=== PATIENT | female | born 1950 | race Caucasian/White ===

== ENCOUNTER 2017-05-26 13:51 | Emergency (ER) | payer MEDICARE ==
[~2017-05-26] VITALS: Ht 160 cm; Wt 47.2 kg
[~2017-05-26 13:51] MED LIST: CHOLESTYRAMINE P4 GM PO; CLONAZEPAM0.5 MG PO; IPRAT-ALBUT 0.5-3 ML INH; MULTIVITAMINS1 EAC7 PO; NEURONTIN300 MG PO; NORCO 5-325 TA1 EACH PO; OMEPRAZOLE20 MG PO; PROAIR HFA8.5 GM IH; SERTRALINE HCL50 MG PO
[2017-05-26] MEDS ORDERED: PRISTIQ ER50 MG PO (14:09)
[2017-05-26] MEDS ORDERED: PERCOCET 7.5-31 EACH PO (14:18)
[2017-05-26] MEDS ORDERED: BACLOFEN10 MG PO (14:18)
[2017-05-26] MEDS ORDERED: METHYLPREDNISOLO4 M1 PO (14:18)
== END 2017-05-26 14:26 | disposition home or self-care (01) ==
LOC: ED 13:51
DX: M54.2 Cervicalgia (principal); G89.29 Other chronic pain; M62.838 Other muscle spasm; F41.9 Anxiety disorder, unspecified; K21.9 Gastro-esophageal reflux disease without esophagitis; F32.9 Major depressive disorder, single episode, unspecified; F17.200 Nicotine dependence, unspecified, uncomplicated; Z88.0 Allergy status to penicillin; Z88.2 Allergy status to sulfonamides; Z88.5 Allergy status to narcotic agent; Z79.899 Other long term (current) drug therapy
CPT/HCPCS: 99283

== ENCOUNTER 2017-09-12 14:57 | Emergency (ER) | payer MEDICARE ==
[~2017-09-12] VITALS: Ht 160 cm; Wt 51.7 kg
[~2017-09-12 14:57] MED LIST changes: +BACLOFEN10 MG PO; +METHYLPREDNISOLO4 M1 PO; +PERCOCET 7.5-31 EACH PO; +PRISTIQ ER50 MG PO
[2017-09-12] MEDS ORDERED: CYMBALTA30 MG PO (15:22)
[2017-09-12] MEDS ORDERED: SPIRIVA18 MCG INH (15:23)
[2017-09-12] MEDS ORDERED: ZOFRAN4 MG PO (18:26)
== END 2017-09-12 18:45 | disposition home or self-care (01) ==
LOC: ED 14:57
DX: K29.70 Gastritis, unspecified, without bleeding (principal); F41.9 Anxiety disorder, unspecified; K21.9 Gastro-esophageal reflux disease without esophagitis; F32.9 Major depressive disorder, single episode, unspecified; F17.200 Nicotine dependence, unspecified, uncomplicated; Z88.0 Allergy status to penicillin; Z88.2 Allergy status to sulfonamides; Z88.5 Allergy status to narcotic agent; Z79.899 Other long term (current) drug therapy
CPT/HCPCS: 80053; 81001; 83690; 85025; 96374; 96375; 99283; J2405

== ENCOUNTER 2018-05-25 00:12 | Observation (INO) | payer MEDICARE ==
[~2018-05-25] VITALS: Ht 160 cm; Wt 49.9 kg
[~2018-05-25 00:12] MED LIST changes: +ALBUTEROL2.5 MG/3 M INH; +CYMBALTA30 MG PO; -IPRAT-ALBUT 0.5-3 ML INH; +SPIRIVA18 MCG INH; +ULTRAM50 MG PO; +ZANTAC150 MG PO; +ZOFRAN4 MG PO
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
--- NOTE | 2018-05-25 03:43 | NUR ---
PT ARRIVED TO ROOM 126 VIA STRETCHER, WAS ABLE TO STAND AND TRANSFER HERSELF INTO BED. SHE IS ALERT/ORIENTED, DENIES PAIN AT THIS TIME. BREATHING APPEARS LABORED, TACHYPNIC RATE 20-25, 2L O2 VIA NC IN PLACE, ACCESSORY MUSCLE USE OBSERVED. LUNGS SOUND TIGHT WITH EXPIRATORY WHEEZES PRESENT. HR TACHY 120'S. BOWEL TONES ACTIVE, DENIES NAUSEA. SKIN APPEARS GROSSLY INTACT. PT UP TO [facility] WITH SBA TO VOID AND THEN RETURNED TO BED. IV PATENT, INFUSING WNL, DRESSING INTACT. R.T. IN TO ROOM AT THIS TIME FOR BREATHING TREATMENT. CALL LIGHT WITHIN REACH, NO FURTHER REQUESTS AT THIS TIME.
--- NOTE | 2018-05-25 04:56 | NUR ---
PT CALLED TO USE BATHROOM, UP WITH SBA TO BSC, VOIDED 500ML AND RETURNED TO BED. PT TOLERATED WELL. PROVIDED WITH JELLO PER REQUEST. PT REPORTS A SORE THROAT THAT SHE RATES 4/10, PRN TYLENOL ADMINISTERED. PT DENIES FURTHER REQUETS AT THIS TIME, CALL LIGHT WITHIN REACH.
--- NOTE | 2018-05-25 06:38 | EKG ---
[facility] [place] [facility] [address] [facility] [place], [place] [address] Signed Sinus tachycardia with premature atrial complexes Septal infarct , age undetermined ST \T\ T wave abnormality, consider inferior ischemia ST \T\ T wave abnormality, consider anterolateral ischemia Abnormal ECG No previous ECGs available Confirmed by CHARLY MCDOWELL MD ([id number]) on 05/25/2018 6:37:55 AM Electronically Signed By: CHARLY MCDOWELL MD 05/25/18 0638 PATIENT NAME: DAMARIS GALICIA Electrocardiogram DATE OF : 54 PHYSICIAN: CHARLY MCDOWELL MD REPORT #: [id number] REPORT IS CONFIDENTIAL AND NOT TO BE RELEASED WITHOUT AUTHORIZATION
--- NOTE | 2018-05-25 06:47 | NUR ---
PT APPEARS TO BE SLEEPING AT THIS TIME, NO APPARENT DISTRESS. RESPIRAIONS APPEAR EVEN AND UNLABORED, RR:20, SPO2:91% ON 2L. HR:100. WILL ALLOW FOR REST AND CONTINUE TO MONITOR.
--- NOTE | 2018-05-25 07:30 | NUR ---
REPORT RECIEVED, PATIENT IS SLEEPING IN BED. NO DISTRESS NOTED.
--- NOTE | 2018-05-25 08:00 | NUR ---
ASSESSMENT DONE. HAS HARSH COUGH. LUNGS ARE DIM AND TIGHT. DENIES PAIN IN CHEST WITH DEEP BREATH. TALKED WITH PATIENT ABOUT PLAN OF CARE FOR DAY, IS UNDERSTANDING. UP TO COMMODE TO VOID, BACK TO BED W/O INCIDENT.
--- NOTE | 2018-05-25 09:00 | NUR ---
SITTING UP IN BED TO TAKE CLEAR LIQUIDS.
--- NOTE | 2018-05-25 09:55 | NUR ---
ROUTINE PO MEDICATIONS GIVEN. PATIENT DENIES FUTHER NEEDS AT THIS TIME.
[2018-05-25] MEDS ORDERED: OSELTAMIVIR PHO75 MG PO (12:00)
[2018-05-25] MEDS ORDERED: VITAMIN D1000 UNI1 PO (12:59)
[2018-05-25] MEDS ORDERED: PROBIOTIC1 EAC1 PO (13:00)
--- NOTE | 2018-05-25 13:00 | NUR ---
MED REC COMPLETE
--- NOTE | 2018-05-25 13:20 | NUR ---
TYLENOL GIVEN FOR GENERALIZED DISCOMFORT. TOOK LUNCH WELL.
--- NOTE | 2018-05-25 14:48 | NUR ---
RESTFUL AT THIS TIME.
--- NOTE | 2018-05-25 16:00 | NUR ---
ASSESSMENT DONE. DENIES PAIN. STATES SHE DOES HAVE PERIODS OF FEELING ANXIOUS. PATIENT STATES THIS IS NORMAL FOR HER.
--- NOTE | 2018-05-25 16:30 | NUR ---
IVF INFUSING W/O PROBLEMS.
--- NOTE | 2018-05-25 18:10 | NUR ---
SITTING UP IN BED TO EAT DINNER. IS WITH INCREASED SHORTNESS OF BREATH WITH ACTIVITY. CONTINUE WITH OCC COUGH.
--- NOTE | 2018-05-25 18:48 | NUR ---
IS W/O C/O. TOOK DINNER WELL.
--- NOTE | 2018-05-25 18:57 | NUR ---
REPORT TO NEXT SHIFT. IS SITTING UP IN BED WATCHING TV.
--- NOTE | 2018-05-25 19:30 | NUR ---
RECEIVED REPORT AT 1900, FOUND PT IN BED WATCHING TV. PT HAD SOME QUESTIONS ABOUT THE DOSING OF HER CLONAZEPAM AT BEDTIME. OTHERWISE PT HAD NO NEEDS OR COCNERNS AT THAT TIME.
--- NOTE | 2018-05-25 20:00 | NUR ---
MD MCDOWELL WAS CALLED FOR CLONAZEPAM ORDER AND A NEW PRN HS ORDER WAS RECEIVED. PT HAS EXPIRATORY WHEEZING IN ALL LOBES . RIGHT LOBES ARE VERY DIMINISHED OVERALL. TEMPORAL TEMP WAS 99.7. ABD SOUNDS ARE PRESENT AND NO PERIPHERAL EDEMA NOTED. RR IS WDL AND SO ARE O2 SATS ON 2L O2 NC. NO NEW CONCERNS NOTED AT THIS TIME.
--- NOTE | 2018-05-25 22:00 | NUR ---
PT AT THIS TIME IS STILL AWAKE BUT HAS NO NEEDS. ASSISTED PT TO BSC. URINE OUTPUT IS ADEQUATE.
--- NOTE | 2018-05-26 00:05 | NUR ---
PT REFUSED NEB FOR RT. PT IN BED RESTING. NO NEW CONCERNS AT THIS TIME.
--- NOTE | 2018-05-26 01:30 | NUR ---
PT IS RESTING IN BED BUT NOT SLEEPING. NO NEW CONCERNS NOTED AT THIS TIME.
--- NOTE | 2018-05-26 02:34 | NUR ---
PT AT THIS TIME IS ON 1L O2 NC AND O2 SATS ARE >90%.
--- NOTE | 2018-05-26 04:00 | NUR ---
PT AT THIS TIME IS ON ROOM AIR AND MAINTAINING O2 SATS >90%. ALL LOBES HAVE INSPIRATORY WHEEZING PRESENT AT THIS TIME. PT WAS FINALLY ABLE TO SLEEP SOME. NO NEW CONCERNS NOTED AT THIS TIME.
--- NOTE | 2018-05-26 05:13 | NUR ---
PT AT THIS TIME WAS PUT ON 2L O2 NC AGAIN. WHILE SLEEPING HER O2 SATS WERE AT 88%. WILL WEAN HER OFF O2 AGAIN WHILE AWAKE.
--- NOTE | 2018-05-26 05:33 | NUR ---
PT OVERALL HAD A GOOD NIGHT. V/S OVERALL WERE WDL, LOBES DURING FIRST ASSESSMENT HAD EXPIRATORY WHEEZING PRESENT, DURING SECOND ASSESSMENT LOBES ONLY HAD SOME SLIGHT COARSNESS PRESENT. WITH THE 0400 ASSESSMENT PT HAD INSPRIRATORY WHEEZING PRESENT IN ALL LOBES. PT HAS WEANED OFF O2 AT 0400 AND WAS ABLE TO MAINTAIN HER O2 SATS> 90% WHILE AWAKE. ONCE PT FELL ASLEEP HOWEVER HER O2 SATS DROPPED INTO THE MID 80'S. THEREFORE AT THIS TIME PT IS BACK ON 2L O2 NC WHILE SLEEPING. PT STATED THAT SHE FEELS STRONGER NOW. HER ANXIETY LEVEL HAS DIMINISHED A LOT SINCE KLONOPIN WAS GIVEN LAST NIGHT. URINE OUTPUT IS ADEQUATE. WILL CONTINUE TO MONITOR. NO NEW CONCNERNS NOTED AT THIS TIME.
--- NOTE | 2018-05-26 08:15 | NUR ---
pt sleeping soundly at this time. vitals wnl, pt is in no visable distress, will defer assessment until 0900 when morning meds are due to allow for pt rest.
--- NOTE | 2018-05-26 09:43 | NUR ---
PT SITTING UP IN BED TALKING ON CELL PHONE. PT DENIES PAIN, NAUSEA, AND SOB AT THIS TIME. PT ALERT AND ORIENTED X4, COOPERATIVE AND ALERT. PT REPORTS FEELING FATIGUED.
--- NOTE | 2018-05-26 11:50 | NUR ---
PT GIVEN LUNCH TRAY. PT SITTING UP IN BED TALKING ON THE PHONE. O2 SAT IS 91-97% ON ROOM AIR.
--- NOTE | 2018-05-26 13:45 | NUR ---
PT TRANSFERED TO ROOM 113. PT ABLE TO AMBULATE TO HER NEW ROOM. ALL PERSONAL BELONGINGS TRANSFERED WITH PT. LITZY ACTIVITY WELL.
--- NOTE | 2018-05-26 13:46 | NUR ---
PT TRANSFERED FROM ICU TO ROOM 113, PT WALKED WITH MASK ACCOMPANIED BY NURSE TO ROOM. SCRAP YARD WORKER WILL ASSIST PT INTO SHOWER AT THIS TIME. DROPLET PRECATIONS ARE IN PLACE. PT IS ALERT, ORIENTED, DENIES ANY DISCOMFORT OR CONCERNS, ANXIOUS TO TAKE SHOWER. ORDERS NOTED.
--- NOTE | 2018-05-26 16:11 | NUR ---
PATIENT RESTING IN BED. IV COVERED. PATIENT GOES TO BATHROOM TO TAKE A SHOWER. PATIENT BACKS TO BED. CALL LIGHT WITHIN REACH. NO OTHER NEEDS AT THIS TIME
--- NOTE | 2018-05-26 17:55 | NUR ---
BROUGHT PATIENT A ICE PACK AND A HOT PACK.
--- NOTE | 2018-05-26 18:00 | NUR ---
PT DENIES ANY NEEDS, STATES SHE IS COMFORTABLE, REMAINS ON RA, LOOSE PROD COUGH. IN ROOM VISITING. CALL LIGHT IN EASY REACH.
--- NOTE | 2018-05-26 19:10 | NUR ---
IN ROOM FOR REPORT, PT IS RESTING WITH EYES CLOSED. RESPIRATIONS ARE EVEN AND NONLABORED. CALL LIGHT IS WITHIN REACH.
--- NOTE | 2018-05-26 20:06 | NUR ---
GETTING NEBS TX. cONTINUES ON DROPLET PRECAUTIONS. NO REQUESTS, MOIST PRODUCTIVE COUGH PRESENT. ON ROOM AIR. NO RESP DISTRESS. CALL LIGHT AT BEDSIDE CALL LIGHT AT BEDSIDE, FRESH WATER GIVEN. PT IN BED
--- NOTE | 2018-05-26 21:40 | NUR ---
IN ROOM TO ASSESS PT AND ADMINISTER MEDICATIONS. ASSISTED PT TO THE RESTROOM AND BACK TO BED. SHE WAS VERY SOB AND O2 SAT WAS 77% ON RA. PLACED HER ON 2 LNC WHILE SHE RECOVERED. THEN TURNED PT DOWN TO 1LNC BECAUSE SHE WAS GOING TO TRY TO GO TO SLEEP AND WOULD DIP TO 89% OFF AND ON, ON RA. SHE DENIES FURTHER NEEDS AT THIS TIME. CALL LIGHT IS CLOSE.
--- NOTE | 2018-05-26 23:19 | NUR ---
PT IS AWAKE IN BED, FRESH WATER AT BEDSIDE AND PT DENIES FURTHER NEEDS. CALL LIGHT IS WITHIN REACH.
--- NOTE | 2018-05-27 00:05 | NUR ---
PT IS AWAKE AT THIS TIME AND RECEIVING A NEB TRT. CALL LIGHT IS CLOSE.
--- NOTE | 2018-05-27 00:55 | NUR ---
PT IS RESTING WITH EYES CLOSED, REPIRATIONS ARE EVEN AND NONLABORED. CALL LIGHT IS WITHIN REACH.
--- NOTE | 2018-05-27 02:55 | NUR ---
PT IS RESTING WITH EYES CLOSED, RESPIRATIONS ARE EVEN AND NONLABORED. CALL LIGHT IS CLOSE.
--- NOTE | 2018-05-27 04:59 | NUR ---
PT IS RESTING WITH EYES CLOSED, RESPIRATIONS ARE EVEN AND NONLABORED. CALL LIGHT IS WITHIN REACH.
--- NOTE | 2018-05-27 06:10 | NUR ---
PT DENIES NEEDS AT THIS TIME CALL LIGHT IS WITHIN REACH.
--- NOTE | 2018-05-27 07:39 | NUR ---
RECIEVED BEDSIDE REPORT FROM NAOMI MUÑIZ. PT SLEEPING, BREATHING EVEN AND UNLABORED. O2 REPLACED AT 1L DUE TO DESATS AFTER AMBULATION FROM THE BATHROOM. WILL TITRATE ONCE SHE WAKES UP.
--- NOTE | 2018-05-27 08:00 | NUR ---
PATIENT RESTING IN BED. PATIENT REFUSED TO TAKE A SHOWER TODAY BECAUSE SHE TOOK A SHOWER YESTERDAY.
--- NOTE | 2018-05-27 08:49 | NUR ---
PT AWAKE AND ALERT IN BED, VERY CHATTY. PT VERY COOPERATIVE WITH CARES. PT WANTS TO QUIT SMOKING, RT ASSITING WITH THAT. STILL ON 1L O2, WILL TRY TO TIRTRATE DOWN.
--- NOTE | 2018-05-27 09:31 | NUR ---
PATIENT RESTING IN BED. VITAL SIGNS AND I&O DONE. ICE WATER GIVEN. CALL LIGHT WITHIN REACH. NO OTHER NEEDS AT THIS TIME
--- NOTE | 2018-05-27 09:40 | NUR ---
PATIENT RESTING IN BED. PATIENT COMPLAINS ABOUT SHE FEELS THAT THE IV ITCHES AND THE SKIN IS RED. RN NOTIFIED
--- NOTE | 2018-05-27 11:00 | NUR ---
SPOKE WITH PATIENT IN ROOM. PATIENT IS UP AMBULATING WITH OXYGEN ON INDEPENDENTLY. PATIENT IS ORIENTED, IS VERY ENGAGED IN HER HEALTH AND DISCHARGE PLAN. PATIENT LIVES WITH AND HAS ADULT CHILDREN. 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 SHE STATES "I LET MY HEALTH SLIP BECAUSE I DON'T TAKE TIME TO HELP MYSELF". PATIENT HAS NO STAIRS AT HOME, SHE HAS NO AMBULATION ISSUES. SHE STILL DRIVES. SHE IS RETIRED. DISCUSSED HER PREFERENCE FOR DISCHARGE PLAN, SHE WANTS TO RETURN HOME BUT STATES "I DON'T THINK TODAY THOUGH, I'M STILL SO SOB". DISCUSSED HER DIAGNOSIS, SHE STATES SHE HAS A NEBULIZER AT HOME, SHE DOES NOT HAVE OXYGEN AND IS HOPING NOT TO NEED IT. DISCUSSED POSSIBLE DME IN CASE SHE DOES, SHE THINKS TO GO THROUGH IN-HOME MEDICAL IF SHE NEEDS IT. DISCUSSED SMOKING CESSATION. PATIENT VERY INTERESTED IN THIS. STATES SHE HAS QUIT IN THE PAST, AND STARTED SMOKING AT AGE 32. SHE STATES UNDERSTANDING OF COPD, HAD TWO SISTER WHO OF COMPLICATIONS RELATED TO THIS. SHE IS VERY INTERESTED IN F/U WITH CHW AND WITH POSSIBLE PULMONARY REHAB AT SOME POINT. DISCUSSED FOR HER TO UNDERSTAND ALL MEDICATIONS AND SIDE EFFECTS AT DISCHARGE. QUESTIONS ANSWERED. NO FURTHER CONCERNS AT THIS TIME. UNDERSTANDS IT WILL BE AFTER THE WEEKEND BEFORE SHE GETS F/U CALL.
--- NOTE | 2018-05-27 12:40 | NUR ---
PATIENT WALKING IN THE HALLWAY WITH THE CHANNEL REBUILDERAlis MINER. THIS CHANNEL REBUILDER CHAGED LINENS. PATIENT BACKS TO BED. CALL LIGHT WITHIN REACH. NO OTHER NEEDS AT THIS TIME
--- NOTE | 2018-05-27 13:13 | NUR ---
PATIENT RESTING IN BED. IN ROOM. VITAL SIGNS AND I&O DONE. CALL LIGHT WITHIN REACH. NO OTHER NEEDS AT THIS TIME
--- NOTE | 2018-05-27 15:11 | NUR ---
PATIENT CALLS AND ASKS FOR A CUP OF COFFEE. A CUP OF COFFEE GIVEN. CALL LIGHT WITHIN REACH. NO OTHER NEEDS AT THIS TIME
--- NOTE | 2018-05-27 17:00 | NUR ---
PATIENT RESTING IN BED. VITAL SIGNS AND I&O DONE. ICE WATER GIVEN. CALL LIGHT WITHIN REACH. NO OTHER NEEDS AT THIS TIME
--- NOTE | 2018-05-27 18:39 | NUR ---
PT REPORTS FEELING MUCH BETTER. IV INFILTRATED, RESTARTED BY Juan Ramon HALL RN. PT S/L EXCEPT FOR IV ABX. PT REPORTS "JUNK" COMING UP IS LESS. PT REPORTS NO BM SINCE WEDNESDAY, SENNA NOT EFFECTIVE. PER PT REQUEST, SUPOSTITORY GIVEN. WAITING FOR RESULTS. PLAN FOR DISCHARGE HOME TOMORROW.
--- NOTE | 2018-05-27 20:35 | NUR ---
PATIENT RESTING IN BED AND WATCHING TV. PATIENT IS IN NO PAIN. FILLED HER WATER GLASS AND SHE HAS NO OTHER NEEDS AT THIS TIME.
--- NOTE | 2018-05-27 21:24 | NUR ---
nurse discharge planner rounding note. pt resting in bed. pt asks for iv to be flushed due to blood in line. iv flushed, pt tolerated well, iv wnl. pt reports redness to bilateral cheeks and neck. pt states that she believes this is due to o2 tubing, pt denies itching, sob. wrtier will notify primary rn. pt denies further needs at this time. call light in reach.
--- NOTE | 2018-05-27 23:20 | NUR ---
PATIENT RESTING QUIETLY SUPINE. RESPIRATIONS REGULAR AND EVEN AT A RATE OF 16. NO DISTRESS NOTED.
--- NOTE | 2018-05-28 01:15 | NUR ---
PATIENT IS RESTING ON HER RIGHT SIDE, REPIRATIONS REGULAR AND EVEN AT 18. EYES CLOSEDD CALL LIGHT IN REACH.
--- NOTE | 2018-05-28 03:30 | NUR ---
PATIENT CONTINUES TO REST ON HER RIGHT SIDE. RESPIRATIONS REGULAR AND EVEN AT 18. EYES CLOSED AND CALL LIGHT IN REACH.
--- NOTE | 2018-05-28 05:29 | NUR ---
PATIENT VOIDING WELL NOW AND TAKING PLENTY OF PO FLUIDS, SATS 90-92% on RA. PATIENT SAYS SHE HAS GOT SOME SLEEP AND HAS HAD NO PAIN AND HAS BEEN INDEPENDENT IN THE ROOM
--- NOTE | 2018-05-28 07:41 | NUR ---
REPORT RECEIVED FROM [facility] SHIFT RN. PT UP IN BED, DENIES NEEDS. SL, ON RA. COFFEE PROVIDED. BREAKFAST ORDERED. CALL LIGHT IN REACH. CONTACT PRECAUTIONS IN PLACE.
[2018-05-28] MEDS ORDERED: LEVAQUIN500 MG PO (09:41)
[2018-05-28] MEDS ORDERED: NICORETTE4 M2 BUCCAL (09:42)
== END 2018-05-28 11:40 | disposition home or self-care (01) ==
LOC: ED 00:12 → CCU 01:13 → MS 05-26 13:56
PROVIDERS: ADMIT Internal Medicine
DX: J10.1 Influenza due to other identified influenza virus with other respiratory manifestations (principal); J43.9 Emphysema, unspecified; K21.9 Gastro-esophageal reflux disease without esophagitis; F41.9 Anxiety disorder, unspecified; R09.02 Hypoxemia; F32.9 Major depressive disorder, single episode, unspecified; F17.200 Nicotine dependence, unspecified, uncomplicated; M50.21 Other cervical disc displacement, high cervical region; Z88.5 Allergy status to narcotic agent; Z88.0 Allergy status to penicillin; Z88.2 Allergy status to sulfonamides; Z79.899 Other long term (current) drug therapy
CPT/HCPCS: 36415; 36600; 71045; 80048; 80053; 82803; 85025; 93005; 93010; 94640; 94644; 96361; 96365; 96372; 96375; 96376; 99284-25; 99406; G0378; J1650; J1956; J2920; J2930; J7030

== ENCOUNTER 2019-02-19 09:06 | Inpatient (IN) | payer MEDICARE ==
[~2019-02-19] VITALS: Ht 160 cm; Wt 48.3 kg
[~2019-02-19 09:06] MED LIST changes: +LEVAQUIN500 MG PO; +NICORETTE4 M2 BUCCAL; +OSELTAMIVIR PHO75 MG PO; +PREDNISONE20 MG PO; +PROBIOTIC1 EAC1 PO; +VITAMIN D21250 MCG PO
--- OUTSIDE RECORDS SUMMARY | 2019-02-19 09:08 | XMS ---
PreManage Notification: DAMARIS GALICIA Security Architectural Representative Events No recent Security Events currently on file CRITERIA MET - [facility] - Has Care Guidelines - PDMP CARE PROVIDERS MATIAS OVALLE Nurse Practitioner: Family 05/25/2018-Current PHONE: Unknown АЛЕКСАНДР NICOLE Primary Care 04/05/2015-Current PHONE: Unknown [email or web address]: 10/07/2018 Care Coordination: Mental health services provided by [facility].\T\nbsp; Please contact [facility] with mental health concerns.\T\nbsp; Jake/Jaspreet Cordero: [phone]\T\ nbsp; Adrian: [phone]. Care History Medical/Surgical 05/25/2018 [facility] - Patient is currently established with [facility]. If patient is seen in the ED during business hours. Please contact CHWs at [facility]. Care Recommendation: This patient has had 5 or more Emergency Department visits in the last 12 months.\T\nbsp; Patient requires education on the scope and purpose of the ED as an acute care provider not a Primary Care Provider and should not be utilized for chronic conditions.\T\nbsp; These are guidelines and the provider should exercise clinical judgment when providing care. E.D. VISIT COUNT (12 MO.) 3 RADHA Sotomayor TOTAL 3 NOTE: Visits indicate total known visits. ED/UCC VISIT TRACKING (12 MO.) 02/19/2019 09:06 [facility] [place] TYPE: Emergency COMPLAINT: - SOB 10/05/2018 11:36 [facility] [place] TYPE: Emergency COMPLAINT: - RASH DIAGNOSES: - Major depressive disorder, single episode, unspecified - Personal history of nicotine dependence - Allergy status to penicillin - Rash and other nonspecific skin eruption - Gastro-esophageal reflux disease without esophagitis - Urticaria, unspecified - Allergy status to narcotic agent status - Other termite control servicer (current) drug therapy - Anxiety disorder, unspecified - Allergy status to sulfonamides status - Chronic obstructive pulmonary disease, unspecified 05/25/2018 00:12 [facility] [place] TYPE: Emergency COMPLAINT: - SOB INPATIENT VISIT TRACKING (12 MO.) 05/25/2018 01:13 [facility]al [place] TYPE: Observation COMPLAINT: - INFLUENZA/COPD DIAGNOSES: - Nicotine dependence, unspecified, uncomplicated - Allergy status to narcotic agent status - Flu due to oth ident influenza virus w oth resp manifest - Major depressive disorder, single episode, unspecified - Other cervical disc displacement, high cervical region - Hypoxemia - Other halfway (current) drug therapy - Anxiety disorder, unspecified - Gastro-esophageal reflux disease without esophagitis - Allergy status to sulfonamides status - Allergy status to penicillin - Shortness of breath - Personal history of nicotine dependence - Emphysema, unspecified [email or web address]
[2019-02-19] MEDS ORDERED: DOXYCYCLINE HY100 MG PO (09:34)
--- NOTE | 2019-02-20 07:58 | EKG ---
[facility] [address] [facility] [address] [place] [address] Signed Normal sinus rhythm Cannot rule out Anteroseptal infarct (cited on or before 25-MAY-2018) Abnormal ECG When compared with ECG of 25-MAY-2018 00:43, premature atrial complexes are no longer present Vent. rate has decreased BY 53 BPM Questionable change in initial forces of Anterior leads Nonspecific T wave abnormality has replaced inverted T waves in Inferior leads Nonspecific T wave abnormality has replaced inverted T waves in Anterolateral leads Confirmed by CHARLY MCDOWELL MD ([id number]) on 02/20/2019 7:57:52 AM Electronically Signed By: CHARLY MCDOWELL MD 02/20/19 0758 PATIENT NAME: DAMARIS GALICIA Electrocardiogram DATE OF : 54 PHYSICIAN: CHARLY MCDOWELL MD REPORT #: [id number] REPORT IS CONFIDENTIAL AND NOT TO BE RELEASED WITHOUT AUTHORIZATION
[2019-02-20] MEDS ORDERED: PREDNISONE20 MG PO (08:58)
[2019-02-20] MEDS ORDERED: COMBIVENT RESPIM4 GM INH (09:01)
[2019-02-20] MEDS ORDERED: ESCITALOPRAM OX20 MG PO (09:06)
[2019-02-20] MEDS ORDERED: ARIPIPRAZOLE5 MG PO (12:02)
[2019-02-21] MEDS ORDERED: NICORETTE4 M2 BUCCAL (09:25)
[2019-02-21] MEDS ORDERED: PREDNISONE20 MG PO (09:27)
== END 2019-02-21 11:45 | disposition home or self-care (01) | DRG 192 ==
LOC: ED 09:06 → MS 13:15
PROVIDERS: ADMIT Student in an Organized Health Care Education/Training Program
DX: J44.1 Chronic obstructive pulmonary disease with (acute) exacerbation (principal); F41.9 Anxiety disorder, unspecified; K21.9 Gastro-esophageal reflux disease without esophagitis; F17.200 Nicotine dependence, unspecified, uncomplicated; Z79.899 Other long term (current) drug therapy; Z79.52 Long term (current) use of systemic steroids; Z88.5 Allergy status to narcotic agent; Z88.0 Allergy status to penicillin; Z88.2 Allergy status to sulfonamides
CPT/HCPCS: 36415; 71046; 80048; 80053; 83735; 84484; 85025; 93005; 93010; 94640; 94644; 94668; 96360; 96361; 99285-25; J1650; J2920; J2930; J7121; J7512

== ENCOUNTER 2020-08-01 14:50 | Emergency (ER) | payer MEDICARE ==
[~2020-08-01] VITALS: Ht 160 cm; Wt 48.1 kg
[~2020-08-01 14:50] MED LIST changes: +ARIPIPRAZOLE5 MG PO; +COMBIVENT RESPIM4 GM INH; +DOXYCYCLINE HY100 MG PO; +ESCITALOPRAM OX20 MG PO
--- OUTSIDE RECORDS SUMMARY | 2020-08-01 14:52 | XMS ---
PreManage Notification: DAMARIS GALICIA Security Manager Oncology Events No recent Security Events currently on file CRITERIA MET - [facility] - Has Care Guidelines - PDMP CARE PROVIDERS MATIAS OVALLE Nurse Practitioner: Family 05/25/2018-Current PHONE: [phone] Care Guidelines exist for the following facilities: [facility] ( 04/15/2020 ) Care History Medical/Surgical 02/20/2019 [facility] Patient was admitted from ED for COPD exacerbation.\T\nbsp; Patient has follow up with Matias Ovalle 05/03/2019. 05/25/2018 [facility] - Patient is currently established with [facility]. If patient is seen in the ED during business hours. Please contact CHWs at [facility]. Care Recommendation: This patient has had [...] providing care. E.D. VISIT COUNT (12 MO.) 1 RADHA Sotomayor TOTAL 1 NOTE: Visits indicate total known visits. ED/UCC VISIT TRACKING (12 MO.) 08/01/2020 14:51 RAD[facility] Agrawal [place] TYPE: Emergency COMPLAINT: - DIFFICULTY BREATHING INPATIENT VISIT TRACKING (12 MO.) No inpatient visits to display in this time frame [email or web address]
[2020-08-01] MEDS ORDERED: SYMBICORT 16010.2 GM INH (15:05)
[2020-08-01] MEDS ORDERED: PREDNISONE20 MG PO (17:17)
== END 2020-08-01 18:16 | disposition home or self-care (01) ==
LOC: ED 14:50
DX: J44.9 Chronic obstructive pulmonary disease, unspecified (principal); K21.9 Gastro-esophageal reflux disease without esophagitis; Z87.891 Personal history of nicotine dependence; Z88.0 Allergy status to penicillin; Z88.2 Allergy status to sulfonamides; Z88.5 Allergy status to narcotic agent; Z79.899 Other long term (current) drug therapy
CPT/HCPCS: 71045; 80053; 83735; 84484; 85025; 94640; 96374; 99285-25; J1100

== ENCOUNTER 2020-12-12 14:52 | Emergency (ER) | payer MEDICARE ==
[~2020-12-12] VITALS: Ht 160 cm; Wt 48.1 kg
[~2020-12-12 14:52] MED LIST changes: +SYMBICORT 16010.2 GM INH
--- OUTSIDE RECORDS SUMMARY | 2020-12-12 14:56 | XMS ---
PreManage Notification: DAMARIS GALICIA Security Test Developer Events No recent Security Events currently on file [facility] AM[facility]IGIL Emergency Medicine 08/02/2020-Current PHONE: [phone] WILFRIDO OVALLE Nurse Practitioner: 05/25/2018-Current PHONE: [phone] Care Guidelines exist for the following facilities: [facility] ( 04/15/2020 ) Care History Medical/Surgical 02/20/2019 [facility] Patient was admitted from ED for COPD exacerbation.\T\nbsp; Patient has follow up with Wilfrido Ovalle 05/03/2019. 05/25/2018 [facility] - Patient is currently established with [facility]. If patient is seen in the ED during business hours. Please contact CHWs at [facility]. Care Recommendation: This patient has had 5 [...] providing care. E.D. VISIT COUNT (12 MO.) [address] [facility] TOTAL 2 NOTE: Visits indicate total known visits. ED/UCC VISIT TRACKING (12 MO.) 12/12/2020 14:53 [facility]al [place] TYPE: Emergency COMPLAINT: - LOW O2 SATS, COUGH, FEVER 08/01/2020 14:[address] [facility] [place] TYPE: Emergency COMPLAINT: - DIFFICULTY BREATHING DIAGNOSES: - Allergy status to penicillin - Other predatory animal exterminator (current) drug therapy - Allergy status to narcotic agent - Personal history of nicotine dependence - Allergy status to sulfonamides - Gastro-esophageal reflux disease without esophagitis - Chronic obstructive pulmonary disease, unspecified - Shortness of breath INPATIENT VISIT TRACKING (12 MO.) No inpatient visits to display in this time frame [email or web address]
== END 2020-12-12 18:41 | disposition home or self-care (01) ==
LOC: ED 14:52
DX: U07.1 COVID-19 (principal); K21.9 Gastro-esophageal reflux disease without esophagitis; J44.9 Chronic obstructive pulmonary disease, unspecified; Z88.0 Allergy status to penicillin; Z88.2 Allergy status to sulfonamides; Z88.5 Allergy status to narcotic agent; Z79.899 Other long term (current) drug therapy
CPT/HCPCS: 99284-25; M0243; Q0244

== ENCOUNTER 2021-12-30 12:22 | Emergency (ER) | payer MEDICARE ==
[~2021-12-30] VITALS: Ht 160 cm; Wt 48.1 kg
[~2021-12-30 12:22] MED LIST changes: +CITALOPRAM HBR20 MG PO; +MIRTAZAPINE7.5 MG PO; +SYMBICORT 80-10.2 GM INH
--- OUTSIDE RECORDS SUMMARY | 2021-12-30 12:24 | XMS ---
PreManage Notification: DAMARIS GALICIA Security Value Stream Coach Events No recent Security Events currently on file CRITERIA MET - [facility] CARE PROVIDERS AMANDA VIGIL Emergency Medicine 12/16/2020-Current PHONE: [phone] MATIAS OVALLE Nurse Practitioner: 05/25/2018-Current PHONE: Unknown Care Guidelines exist for the following facilities: [facility] ( 04/15/2020 ) Care History Medical/Surgical 02/20/2019 [facility] Patient was admitted from ED for COPD exacerbation.\T\nbsp; Patient has follow up with Matias Ovalle 05/03/2019. 05/25/2018 [facility] - Patient is currently established with [facility]. If patient is seen in the ED during business hours. Please contact CHWs at [facility]. Care Recommendation: This patient has had 5 [...] care. E.D. VISIT COUNT (12 MO.) 2 [facility] Sotomayor TOTAL 2 NOTE: Visits indicate total known visits. ED/UCC VISIT TRACKING (12 MO.) 12/30/2021 12:22 [facility] [place] TYPE: Emergency COMPLAINT: - SOB, LOW O2 SATS 11/26/2021 15:05 [facility] [place] TYPE: Emergency COMPLAINT: - SHORTNESS OF BREATH DIAGNOSES: - Chronic obstructive pulmonary disease with (acute) exacerbation - Personal history of nicotine dependence - Contact with and (suspected) exposure to COVID-19 - Allergy status to sulfonamides - Allergy status to narcotic agent - Anxiety disorder, unspecified - Other termite control technician (current) drug therapy - Shortness of breath - Allergy status to penicillin INPATIENT VISIT TRACKING (12 MO.) No inpatient visits to display in this time frame [email or web address]
[2021-12-30] MEDS ORDERED: IPRAT-ALBUT 0.5-3 ML INH (16:27)
[2021-12-30] MEDS ORDERED: DOXYCYCLINE HY100 MG PO (16:27)
--- NOTE | 2021-12-31 15:31 | EKG ---
[facility] [address] [place] [address] Signed Normal sinus rhythm Nonspecific T wave abnormality Abnormal ECG No previous ECGs available Confirmed by MAREK LAI MD ([id number]) on 12/31/2021 3:31:29 PM Electronically Signed By: MAREK LAI MD 12/31/21 1531 PATIENT NAME: DAMARIS GALICIA Electrocardiogram DATE OF : 54 PHYSICIAN: MAREK LAI MD REPORT #: [id number] REPORT IS CONFIDENTIAL AND NOT TO BE RELEASED WITHOUT AUTHORIZATION
== END 2021-12-30 16:40 | disposition home or self-care (01) ==
LOC: ED 12:22
DX: J44.0 Chronic obstructive pulmonary disease with (acute) lower respiratory infection (principal); J44.1 Chronic obstructive pulmonary disease with (acute) exacerbation; J20.9 Acute bronchitis, unspecified; K21.9 Gastro-esophageal reflux disease without esophagitis; Z87.891 Personal history of nicotine dependence; Z88.0 Allergy status to penicillin; Z88.2 Allergy status to sulfonamides; Z88.5 Allergy status to narcotic agent; Z79.899 Other long term (current) drug therapy; Z79.52 Long term (current) use of systemic steroids
CPT/HCPCS: 36415; 71045; 80053; 83735; 83880; 84484; 85025; 93005; 93010; 99285-25

== ENCOUNTER 2022-02-27 15:39 | Emergency (ER) | payer MEDICARE ==
[~2022-02-27] VITALS: Ht 160 cm; Wt 43.5 kg
[~2022-02-27 15:39] MED LIST changes: +IPRAT-ALBUT 0.5-3 ML INH
--- OUTSIDE RECORDS SUMMARY | 2022-02-27 15:42 | XMS ---
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 - Patient with suicidal and/or homicidal ideations eloped. - Patient eloped with IV in place. Details: Patient LWBS. CRITERIA MET - PDMP - [facility] - 2 Visits in 30 Days CARE PROVIDERS AMANDA VIGIL Emergency Medicine 12/16/2020-Current PHONE: [phone] MATIAS OVALLE Nurse Practitioner: 05/25/2018-Current PHONE: Unknown Care Guidelines exist for the following facilities: [facility] [place] ( 04/15/2020 ) Care History Medical/Surgical 02/20/2019 [facility] Patient was admitted from ED for COPD exacerbation.\T\nbsp; Patient has follow up with Matias Ovalle 05/03/2019. 05/25/2018 [facility] - Patient is currently established with [facility]. If patient is seen in the ED during business hours. Please contact CHWs at [facility]. Care Recommendation: This patient has had 5 [...] providing care. E.D. VISIT COUNT ([address] [facility]. TOTAL 4 NOTE: Visits indicate total known visits. 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 [place] TYPE: Emergency COMPLAINT: - SHORTNESS OF BREATH DIAGNOSES: - Other salvage determiner (current) drug therapy - Shortness of breath - Allergy status to penicillin - Chronic obstructive pulmonary disease with (acute) exacerbation - Personal history of nicotine dependence - Contact with and (suspected) exposure to COVID-19 - Allergy status to sulfonamides - Allergy status to narcotic agent - Anxiety disorder, unspecified INPATIENT VISIT TRACKING (12 MO.) No inpatient visits to display in this time frame [email or web address]
[2022-02-27] MEDS ORDERED: PANTOPRAZOLE SO40 MG PO (16:20)
[2022-02-27] MEDS ORDERED: SUCRALFATE1 GM PO (16:21)
[2022-02-27] MEDS ORDERED: LOMOTIL TABLET1 EACH PO (20:19)
[2022-02-27] MEDS ORDERED: REGLAN10 MG PO (20:19)
== END 2022-02-27 20:40 | disposition home or self-care (01) ==
LOC: ED 15:39
DX: R19.7 Diarrhea, unspecified (principal); R11.0 Nausea; R10.13 Epigastric pain; K21.9 Gastro-esophageal reflux disease without esophagitis; J44.9 Chronic obstructive pulmonary disease, unspecified; Z87.891 Personal history of nicotine dependence; Z88.0 Allergy status to penicillin; Z88.2 Allergy status to sulfonamides; Z88.5 Allergy status to narcotic agent; Z79.899 Other long term (current) drug therapy
CPT/HCPCS: 36415; 80053; 85025; 99284

== ENCOUNTER 2023-10-26 18:22 | Emergency (ER) | payer MEDICARE ==
[~2023-10-26] VITALS: Ht 160 cm; Wt 45.0 kg
[~2023-10-26 18:22] MED LIST changes: +KLONOPIN1 MG PO; +LOMOTIL TABLET1 EACH PO; +NITROFURANTOIN100 M1 PO; +ONDANSETRON ODT4 MG PO; +PANTOPRAZOLE SO40 MG PO; +PAXLOVID 300-11 EACH PO; +REGLAN10 MG PO; +SUCRALFATE1 GM PO
[2023-10-26] MEDS ORDERED: ALBUTEROL/IPRATROPIUM 3 ML NEB INH PRN (18:45)
[2023-10-26 18:50] LABS: BASOPHILS 0.7 % (0-2); EOSINOPHILS 3.5 % (0-6); HEMATOCRIT 31.1 % (35.0-50.0); HEMOGLOBIN 10.5 g/dL (12.0-18.0); LYMPHOCYTES 9.1 % (24-44); MCHC 33.9 g/dl (30-36); MCV 85.6 fl (81-99); MONOCYTES 8.2 % (0-12); NEUTROPHILS 78.5 % (39-80); PLATELET COUNT 220 K/uL (140-440); RBC 3.63 M/ul (4.3-5.7); RDW 13.5 (10.5-15.0)
[2023-10-26 19:18] LABS: ALBUMIN 3.6 g/dL (3.4-5.0); ALBUMIN/GLOBULIN RATIO 1.13 (1.1-2.4); ANION GAP 8.2 (7-21); BILIRUBIN, TOTAL 0.3 ng/dL (0.2-1.0); BUN/CREATININE RATIO 10.78 (6.0-28.6); CALCIUM 8.6 mg/dL (8.5-10.1); CREATININE, SERUM 1.02 mg/dL (0.55-1.02); MAGNESIUM 1.6 mg/dL (1.8-2.4); POTASSIUM 4.2 mmol/L (3.5-5.1); PROTEIN, TOTAL 6.8 g/dL (6.4-8.2)
[2023-10-26] MEDS ORDERED: methylPREDNISolone SOD SUCC 125 MG/2 ML VIAL IV ONE (19:30)
[2023-10-26] MEDS ORDERED: PREDNISONE20 MG PO (20:50)
[2023-10-26] MEDS ORDERED: MAGNESIUM OXID400 M1 PO (20:56)
[2023-10-26] MEDS ORDERED: MAGNESIUM OXIDE 400 MG TABLET PO ONE (21:00)
[2023-10-26 21:03] VITALS: BP 148/97
== END 2023-10-26 21:12 | disposition home or self-care (01) ==
LOC: ED 18:22
PROVIDERS: Emergency Medicine
DX: J44.1 Chronic obstructive pulmonary disease with (acute) exacerbation (principal); Z99.81 Dependence on supplemental oxygen; Z87.891 Personal history of nicotine dependence; Z88.0 Allergy status to penicillin; Z88.2 Allergy status to sulfonamides; Z88.5 Allergy status to narcotic agent; Z79.899 Other long term (current) drug therapy
CPT/HCPCS: 36415; 71045; 80053; 83735; 83880; 84484; 85025; 93005; 93010; 94640; 96374; 99285; J2919